=== PATIENT | female | born 1960 | race Caucasian/White ===

== ENCOUNTER 2018-09-04 08:12 | Day surgery (SDC) | payer OTHER ==
[~2018-09-04] VITALS: Ht 170.2 cm; Wt 78.7 kg
[~2018-09-04 08:12] MED LIST: ATOR40TA PO; Aspir 8181 MG PO; CEPH500 PO; FISH OIL 1,0001 EAC1 PO; LISI5 PO; MAGOXI400 PO; MECL12.5 PO; METF500C PO; SULTRIDS PO; TRAM50 PO; VITAMIN D310000 UNIT PO
[2018-09-04] MEDS ORDERED: KAPSPARGO SPRIN25 MG PO (08:51)
--- NOTE | 2018-09-04 08:54 | NUR ---
09/04/18 [id number] Yaneth Strong CALL LIGHT WITHIN REACH
== END 2018-09-04 10:02 | disposition home or self-care (01) ==
LOC: ORSCSDS 08:12
PROVIDERS: Internal Medicine Gastroenterology
PROC: 0DBP8ZX Excision of Rectum, Via Natural or Artificial Opening Endoscopic, Diagnostic (ICD-10-PCS; principal; 2018-09-04 09:30)
DX: Z12.11 Encounter for screening for malignant neoplasm of colon (principal); K62.1 Rectal polyp; K64.8 Other hemorrhoids; E11.9 Type 2 diabetes mellitus without complications; I10 Essential (primary) hypertension; E78.5 Hyperlipidemia, unspecified; Z87.891 Personal history of nicotine dependence; Z79.82 Long term (current) use of aspirin; Z79.899 Other long term (current) drug therapy
CPT/HCPCS: 82947; 88305; J7120